=== PATIENT | male | born 1990 | race Two or more races ===

== ENCOUNTER 2021-04-11 18:49 | Emergency (ER) | payer MEDICAID, OTHER ==
[~2021-04-11] VITALS: Ht 165.1 cm; Wt 93.0 kg
--- NOTE | 2021-04-11 19:05 | NUR ---
pt states having si off and on for years. pt does not have specific plan. pt smiling and laughing with this rn when answering questions. pt very agreeable and cooperative, but restless, pacing around room and requesting food. urine sent, awaiting erp eval
[2021-04-11] MEDS ORDERED: LORazepam 1MG TABLET PO ONE (20:00)
[2021-04-11 20:11] LABS: BASOPHILS % (AUTO) 0 % (0-1); EOSINOPHILS % (AUTO) 1 % (1-7); LYMPHOCYTES % (AUTO) 20 % (22-44); MEAN CORPUSCULAR HEMOGLOBIN 29.3 pg (27.5-34.5); MEAN CORPUSCULAR HGB CONC 34.5 g/dL (33.2-36.2); MEAN PLATELET VOLUME 7.5 fL (7.4-10.4); MONOCYTES % (AUTO) 6 % (2-9); NEUTROPHILS % (AUTO) 74 % (42-75); PLATELET COUNT 312 x10^3/uL (130-400); RED BLOOD COUNT 5.46 x10^6/uL (4.38-5.82); RED CELL DISTRIBUTION WIDTH 13.3 % (9.4-14.8)
[2021-04-11 20:23] LABS: ALANINE AMINOTRANSFERASE 80 U/L (12-78); ALBUMIN 3.7 g/dL (3.4-5.0); ANION GAP 7 mmol/L (5-15); CALCIUM 8.8 mg/dL (8.5-10.1); CHLORIDE 106 mmol/L (98-107); CREATININE 0.98 mg/dL (0.7-1.3); SALICYLATE LEVEL 1.7 mg/dL (2.8-20.0)
[2021-04-11 20:26] LABS: ALKALINE PHOSPHATASE 108 U/L (45-117); BILIRUBIN,TOTAL 0.3 mg/dL (0.2-1.0); TOTAL PROTEIN 7.5 g/dL (6.4-8.2)
[2021-04-11 20:41] LABS: AMPHETAMINE SCREEN, URINE Negative (Negative); BARBITURATE SCREEN, URINE Negative (Negative); BENZODIAZEPINE SCREEN, URINE Negative (Negative); CANNABINOID SCREEN, URINE Negative (Negative); COCAINE SCREEN, URINE Negative (Negative); METHADONE SCREEN, URINE Negative (Negative); OPIATE SCREEN, URINE Negative (Negative)
--- NOTE | 2021-04-11 21:10 | NUR ---
pt provided with sandwich and water per request. pt in line of sight of sitter. awaiting tele psych consult
--- NOTE | 2021-04-11 22:36 | NUR ---
pt resting in gurney, resp even/unlabored. in line of sight of sitter. awaiting psych eval
--- NOTE | 2021-04-11 23:36 | NUR ---
pt provided with snacks and water. pt denies an other needs. tele psych camera in room. awaiting eval
--- NOTE | 2021-04-12 00:30 | NUR ---
PT INITALLY REFUSED PO ATIVAN BUT WANTS IT NOW. DR. CORDOVA WAS UPDATED AND STATED TO GIVE ATIVAN NOW AND TO GIVE ABILIFY LATER
[2021-04-12] MEDS ORDERED: LORazepam 1MG TABLET ONE (00:32)
--- NOTE | 2021-04-12 00:58 | NUR ---
REPORT FROM DESI ASSUMED CARE OF PT
[2021-04-12] MEDS ORDERED: ARIPIPRAZOLE 10 MG TABLET PO ONE (01:00)
--- NOTE | 2021-04-12 01:01 | NUR ---
PT AWAKE SMILING AND TALKATIVE IN NAD SITTER AT DOORWAY
--- NOTE | 2021-04-12 03:18 | NUR ---
PT SLEEPING IN NAD SITTER AT DOOR
--- NOTE | 2021-04-12 03:24 | NUR ---
TP RN: Faxed packet to [facility].
--- NOTE | 2021-04-12 03:35 | NUR ---
REPORT FROM RAMEZ NOBLES
--- NOTE | 2021-04-12 04:40 | NUR ---
PT RESTING IN BED WITH EYES CLOSED, EVEN AND SYMMETRICAL CHEST RISE, SITTER IN VIEW OF PT, WCTM
--- NOTE | 2021-04-12 05:54 | NUR ---
PT RESTING IN BED WITH EYES CLOSED, EVEN AND SYMMETRICAL CHEST RISE, SITTER IN VIEW OF PT, WCTM
--- NOTE | 2021-04-12 06:58 | NUR ---
Report to Ivon NOBLES
--- NOTE | 2021-04-12 07:03 | NUR ---
Pt report from GIULIANO Fernandez. Pt care to be assumed.
--- NOTE | 2021-04-12 07:08 | NUR ---
Pt asleep; even chest rise noted. Sitter outside room.
--- NOTE | 2021-04-12 07:13 | NUR ---
Telepsych monitor in room.
--- NOTE | 2021-04-12 07:13 | NUR ---
Breakfast tray ordered.
--- NOTE | 2021-04-12 08:01 | NUR ---
Pt was ambulatory to & from [facility] w/out incident; gait steady. New gown provided. Pt states he was hearing voices "from a younger me, like a really little me". Pt denied voices telling him to hurt himself or others. States "it was in a rage like voice, ya know, really angry". Pt currently calm and cooperative, speech clear. Sitter outside room.
[2021-04-12] MEDS ORDERED: ARIP5TAB13 PO (08:04)
[2021-04-12 08:05] VITALS: BP 133/79
[2021-04-12] MEDS ORDERED: Abilify (08:05)
--- NOTE | 2021-04-12 08:10 | NUR ---
Breakfast tray delivered.
--- NOTE | 2021-04-12 10:04 | NUR ---
Pt requesting nicotine patch. Will notify ERP.
[2021-04-12] MEDS ORDERED: NICOTINE 14MG/24 HR PATCH.TD24 TD ONE (10:30)
[2021-04-12] MEDS ORDERED: NICOTINE 14MG/24 HR PATCH.TD24 ONE (10:33)
--- NOTE | 2021-04-12 11:51 | NUR ---
COVID specimen obtained. Will be walked to lab.
--- NOTE | 2021-04-12 11:56 | NUR ---
Lunch tray ordered.
[2021-04-12] MEDS ORDERED: ARIPIPRAZOLE 10 MG TABLET ONE (12:56)
[2021-04-12] MEDS ORDERED: ARIP15TA3 PO (14:11)
[2021-04-12] MEDS ORDERED: ARIP400S IM (14:11)
--- NOTE | 2021-04-12 14:34 | NUR ---
Break RN note: Pt resting in bed with eyes closed, resp even and unlabored, NADN. Room remains secured, sitter within eyesight of pt, all safety measures observed.
--- NOTE | 2021-04-12 15:16 | NUR ---
Report called to Natalie NOBLES. Floor ready for pt transport.
== END 2021-04-12 15:17 ==
LOC: ED 21:22 → UNDOADMOB 04-12 01:09 → EDIP 04-12 01:09 → ED 04-12 15:17
DX: R45.851 Suicidal ideations (principal); Z20.822 Contact with and (suspected) exposure to COVID-19; F32.9 Major depressive disorder, single episode, unspecified; F41.9 Anxiety disorder, unspecified
CPT/HCPCS: 36415; 80053; 80299; 80307; 80320; 80329; 85025; 87426; 99285; G0480

== ENCOUNTER 2021-04-12 12:18 | Inpatient (IN) | payer MEDICAID ==
[~2021-04-12] VITALS: Ht 165.1 cm; Wt 91.5 kg
[~2021-04-12 12:18] MED LIST: ARIP5TAB13 PO; Abilify
[2021-04-12] MEDS ORDERED: BISACODYL 10 MG SUPP PR PRN (14:00)
[2021-04-12] MEDS ORDERED: ONDANSETRON ODT 4 MG PO PRN (14:00)
[2021-04-12] MEDS ORDERED: POLYETHYLENE GLYCOL 17 GM PACKET PO PRN (14:00)
[2021-04-12] MEDS ORDERED: ARIP400S IM (14:11)
[2021-04-12] MEDS ORDERED: ARIP15TA3 PO (14:11)
[2021-04-12 15:49] VITALS: BP 137/76
[2021-04-12] MEDS ORDERED: PLEASE ENTER HEIGHT AND WEIGHT MC SCH (16:30)
[2021-04-12] MEDS ORDERED: COVID-19 VAC,AD26(JANSSEN)/PF 0.5ML IM-VACC ONE (17:00)
[2021-04-12 17:25] LABS: MICROSCOPIC NOT IND
[2021-04-12 19:27] VITALS: BP 107/73
[2021-04-12] MEDS: DOCUSATE 100 MG CAPSULE PO PRN (20:35)
[2021-04-13 06:14] LABS: CHOL/HDL RATIO 6.2; FREE T4 (FREE THYROXINE) 0.83 ng/dL (0.76-1.46); LDL/HDL RATIO 3.4 (0.5-3.0)
[2021-04-13 07:15] VITALS: BP 118/61
[2021-04-13] MEDS: NICOTINE 21 MG/24 HR PATCH.TD24 TD SCH (08:40)
[2021-04-13] MEDS: ACETAMINOPHEN 325 MG TABLET PO PRN ×2 (15:14→20:06)
[2021-04-13] MEDS: ARIPIPRAZOLE 15 MG TABLET PO SCH (15:48)
[2021-04-13 18:37] VITALS: BP 128/81
[2021-04-13] MEDS: DIVALPROEX 500 MG TABLET.DR PO SCH (20:05)
[2021-04-13] MEDS: ATORVASTATIN 10 MG TABLET PO SCH (20:06)
[2021-04-14] MEDS: ACETAMINOPHEN 325 MG TABLET PO PRN ×3 (03:56→21:01)
[2021-04-14 07:14] VITALS: BP 117/76
[2021-04-14] MEDS: DIVALPROEX 500 MG TABLET.DR PO SCH ×2 (08:20→21:01)
[2021-04-14] MEDS: NICOTINE 21 MG/24 HR PATCH.TD24 TD SCH (08:20)
[2021-04-14] MEDS: ARIPIPRAZOLE 15 MG TABLET PO SCH (08:21)
[2021-04-14] MEDS ORDERED: LORazepam 1MG TABLET PO ONE (14:30)
[2021-04-14 19:45] VITALS: BP 126/81
[2021-04-14] MEDS: ATORVASTATIN 10 MG TABLET PO SCH (21:01)
[2021-04-15 07:35] VITALS: BP 113/73
[2021-04-15] MEDS: DIVALPROEX 500 MG TABLET.DR PO SCH (08:23)
[2021-04-15] MEDS: ARIPIPRAZOLE 15 MG TABLET PO SCH (08:23)
[2021-04-15] MEDS: NICOTINE 21 MG/24 HR PATCH.TD24 TD SCH (08:24)
[2021-04-15 18:49] VITALS: BP 130/84
[2021-04-15] MEDS: DIVALPROEX 250 MG TABLET.DR PO SCH (20:35)
[2021-04-15] MEDS: ACETAMINOPHEN 325 MG TABLET PO PRN (20:35)
[2021-04-15] MEDS: ATORVASTATIN 10 MG TABLET PO SCH (20:35)
[2021-04-16 07:33] VITALS: BP 123/88
[2021-04-16] MEDS: ARIPIPRAZOLE 15 MG TABLET PO SCH (08:16)
[2021-04-16] MEDS: NICOTINE 21 MG/24 HR PATCH.TD24 TD SCH (08:16)
[2021-04-16] MEDS: DIVALPROEX 250 MG TABLET.DR PO SCH ×2 (08:17→20:24)
[2021-04-16 19:38] VITALS: BP 134/63
[2021-04-16] MEDS: ATORVASTATIN 10 MG TABLET PO SCH (20:23)
[2021-04-16] MEDS: DOCUSATE 100 MG CAPSULE PO PRN (20:24)
[2021-04-17 07:32] VITALS: BP 131/81
[2021-04-17] MEDS: NICOTINE 21 MG/24 HR PATCH.TD24 TD SCH (08:59)
[2021-04-17] MEDS: DIVALPROEX 250 MG TABLET.DR PO SCH ×2 (09:00→20:09)
[2021-04-17] MEDS: ARIPIPRAZOLE 15 MG TABLET PO SCH (09:00)
[2021-04-17 19:35] VITALS: BP 122/86
[2021-04-17] MEDS: ATORVASTATIN 10 MG TABLET PO SCH (20:09)
[2021-04-18 07:31] VITALS: BP 122/75
[2021-04-18] MEDS: NICOTINE 21 MG/24 HR PATCH.TD24 TD SCH (08:29)
[2021-04-18] MEDS: ARIPIPRAZOLE 15 MG TABLET PO SCH (08:29)
[2021-04-18] MEDS: DIVALPROEX 250 MG TABLET.DR PO SCH ×2 (08:29→20:24)
[2021-04-18 19:32] VITALS: BP 129/81
[2021-04-18] MEDS: ATORVASTATIN 10 MG TABLET PO SCH (20:24)
[2021-04-19 07:32] VITALS: BP 121/81
[2021-04-19] MEDS: ARIPIPRAZOLE 15 MG TABLET PO SCH (08:24)
[2021-04-19] MEDS: DIVALPROEX 250 MG TABLET.DR PO SCH ×2 (08:24→20:40)
[2021-04-19] MEDS: NICOTINE 21 MG/24 HR PATCH.TD24 TD SCH (08:24)
[2021-04-19 19:45] VITALS: BP 120/84
[2021-04-19] MEDS: ATORVASTATIN 10 MG TABLET PO SCH (20:41)
[2021-04-20 07:21] VITALS: BP 134/84
[2021-04-20] MEDS: DIVALPROEX 250 MG TABLET.DR PO SCH (08:50)
[2021-04-20] MEDS: NICOTINE 21 MG/24 HR PATCH.TD24 TD SCH (08:52)
[2021-04-20] MEDS ORDERED: ARIPIPRAZOLE 15 MG TABLET PO SCH (09:00)
[2021-04-20] MEDS ORDERED: ARIP15TA3 PO (11:01)
[2021-04-20] MEDS ORDERED: NICO-587 TD (11:01)
[2021-04-20] MEDS ORDERED: DIVA-59 PO (11:01)
== END 2021-04-20 13:23 | disposition home or self-care (01) | DRG 885 ==
LOC: 3E 15:44
PROVIDERS: ADMIT Psychiatry & Neurology Psychosomatic Medicine; ATTEND Psychiatry & Neurology Psychosomatic Medicine
DX: F25.0 Schizoaffective disorder, bipolar type (principal); R45.851 Suicidal ideations; F17.210 Nicotine dependence, cigarettes, uncomplicated; F41.9 Anxiety disorder, unspecified; Z20.822 Contact with and (suspected) exposure to COVID-19; F11.21 Opioid dependence, in remission; F12.10 Cannabis abuse, uncomplicated; F15.21 Other stimulant dependence, in remission; E78.1 Pure hyperglyceridemia; E66.9 Obesity, unspecified; Z68.33 Body mass index [BMI] 33.0-33.9, adult; K59.00 Constipation, unspecified; Z59.0 Homelessness; Z79.899 Other long term (current) drug therapy; Z91.5 Personal history of self-harm
CPT/HCPCS: 36415; 71045; 80053; 80061; 80299; 80307; 80320; 80329; 81003; 84439; 84443; 85025; 87426; 91303; 93005; 99285; G0378; U0005; G0480; U0003